=== PATIENT | male | born 1960 | race Native Hawaiian/Other Pacific Islander ===

== ENCOUNTER 2017-08-26 14:09 | Outpatient (CLI) | payer OTHER | END 2017-08-26 23:45 | disposition home or self-care (01) | LOC: RAD 14:09 | DX: J44.9 Chronic obstructive pulmonary disease, unspecified (principal); Z87.891 Personal history of nicotine dependence ==

== ENCOUNTER 2017-11-28 11:26 | Emergency (ER) | payer OTHER ==
[~2017-11-28] VITALS: Ht 165.1 cm; Wt 104.3 kg
[2017-11-28 11:26] VITALS: TEMP 99
[2017-11-28 12:16] LABS: PLATELET COUNT 215 K/uL (142-355)
[2017-11-28 12:27] VITALS: BP 149/81
[2017-11-28 12:28] LABS: POTASSIUM 3.2 mmol/L (3.6-5.2)
== END 2017-11-28 16:35 | disposition other institution (70) ==
LOC: ED 11:26
DX: T42.4X2A Poisoning by benzodiazepines, intentional self-harm, initial encounter (principal); T51.0X2A Toxic effect of ethanol, intentional self-harm, initial encounter; Y92.89 Other specified places as the place of occurrence of the external cause
CPT/HCPCS: 36415; 51702; 80053; 80162; 80307; 80320; 80329; 81000; 83735; 84484; 85027; 93005; 96365; 96374; 96375; 99285; J1200; J1630

== ENCOUNTER 2022-01-19 13:18 | Outpatient (CLI) | payer OTHER | END 2022-01-19 19:17 | disposition home or self-care (01) | LOC: RAD 13:18 | PROVIDERS: ATTEND Internal Medicine Critical Care Medicine | DX: J43.2 Centrilobular emphysema (principal) ==